=== PATIENT | male | born 1965 | race Caucasian/White ===

== ENCOUNTER 2024-01-03 10:46 | Day surgery (SDC) | payer OTHER ==
[2024-01-03 11:26] VITALS: BMI 20.8
[2024-01-03 11:43] LABS: HEMATOCRIT 37.9 % (35.4-49); HEMOGLOBIN 12.8 GM/dL (11.7-16.9); MCH 30.9 pg (25.7-33.7); MCHC 33.7 g/dl (32.0-35.9); MEAN CELL VOLUME 91.6 fl (80-96); MEAN PLT VOLUME 8.1 fl (7.5-11.1); PLATELET COUNT 286 10^3/uL (134-434); RBC 4.14 M/mm3 (4.00-5.60); RDW 13.8 % (11.9-15.9); WHITE BLOOD COUNT 9.6 K/mm3 (4.0-10.0)
[2024-01-03 13:20] LABS: HEMOGLOBIN 12.6 GM/dL (11.7-16.9); MCH 30.9 pg (25.7-33.7); MCHC 33.3 g/dl (32.0-35.9); MEAN CELL VOLUME 92.9 fl (80-96); PLATELET COUNT 291 10^3/uL (134-434); RBC 4.09 M/mm3 (4.00-5.60); RDW 13.7 % (11.9-15.9); WHITE BLOOD COUNT 9.5 K/mm3 (4.0-10.0)
[2024-01-03 13:28] LABS: INR 1.01 (0.83-1.09); PROTHROMBIN TIME (PATIENT) 11.6 SEC (9.7-13.0)
[2024-01-03 13:30] LABS: ACTIVATED PTT 23.8 SECONDS (25.2-36.5)
[2024-01-03 13:40] LABS: POTASSIUM 4.4 mmol/L (3.5-5.1)
[2024-01-03 13:45] LABS: BLOOD UREA NITROGEN 38.2 mg/dL (7-18); CALCIUM 9.1 mg/dL (8.5-10.1)
[2024-01-03 13:49] LABS: CREATININE 1.1 mg/dL (0.55-1.3)
[2024-01-03] MEDS ORDERED: ELECTROLYTE-148 SOLN 1,000 ML IV SCH (14:15)
[2024-01-03] MEDS ORDERED: oxyCODONE HCL 5 MG TABLET PO PRN (14:32)
[2024-01-03] MEDS ORDERED: ONDANSETRON 4 MG/2 ML VIAL IVPUSH PRN (14:32)
[2024-01-03] MEDS ORDERED: DEXAMETHASONE SOD PHOSPHATE 4 MG/1 ML VIAL ONE (14:34)
[2024-01-03] MEDS ORDERED: ONDANSETRON 4 MG/2 ML VIAL ONE (14:34)
[2024-01-03] MEDS ORDERED: LIDOCAINE HCL/PF 2% SDV 5ML VIAL ONE (14:34)
[2024-01-03] MEDS ORDERED: PROPOFOL 40 ML ONE (14:35)
[2024-01-03] MEDS ORDERED: MIDAZOLAM HCL 2 MG/2 ML SINGLE DOSE VIAL ONE (14:35)
[2024-01-03] MEDS ORDERED: LACTATED RINGERS SOLUTION 1,000 ML IV SCH (14:45)
[2024-01-03] MEDS: ceFAZolin SODIUM 1 GM VIAL IVPB ONE (14:49)
[2024-01-03] MEDS ORDERED: FUROSEMIDE 40 MG/4 ML INJECTABLE VIAL ONE (15:13)
[2024-01-03 17:21] VITALS: RESP 18
[2024-01-03 18:46] VITALS: BP 131/69; PULSE 89; TEMP 98.9
== END 2024-01-03 19:15 | disposition home or self-care (01) ==
LOC: JASU-SURG 10:46
PROVIDERS: ATTEND Urology
PROC: 0VB07ZZ Excision of Prostate, Via Natural or Artificial Opening (ICD-10-PCS; principal; 2024-01-03 14:30)
DX: N40.1 Benign prostatic hyperplasia with lower urinary tract symptoms (principal); R33.9 Retention of urine, unspecified
CPT/HCPCS: 36415; 80048; 85027; 85610; 85730; 88305-TC; 88342-TC; 94760

== ENCOUNTER 2024-01-05 18:03 | Inpatient (IN) | payer OTHER ==
[2024-01-05 18:21] VITALS: BMI 20.8
[2024-01-05 19:03] LABS: VENOUS BASE EXCESS 0.4 mmol/L (-2-2); VENOUS O2 SATURATION 74.2 % (70-80); VENOUS PCO2 35.9 mmHg (38-52); VENOUS PH 7.445 (7.310-7.410)
[2024-01-05 19:04] LABS: HEMATOCRIT 35.8 % (35.4-49); MCH 30.6 pg (25.7-33.7); MCHC 33.5 g/dl (32.0-35.9); MEAN CELL VOLUME 91.5 fl (80-96); MEAN PLT VOLUME 7.7 fl (7.5-11.1); PLATELET COUNT 293 10^3/uL (134-434); RBC 3.91 M/mm3 (4.00-5.60); RDW 14.2 % (11.9-15.9); WHITE BLOOD COUNT 14.3 K/mm3 (4.0-10.0)
[2024-01-05 19:15] LABS: INR 1.15 (0.83-1.09); PROTHROMBIN TIME (PATIENT) 12.9 SEC (9.7-13.0)
[2024-01-05 19:18] LABS: ACTIVATED PTT 24.3 SECONDS (25.2-36.5)
[2024-01-05 19:23] LABS: POTASSIUM 3.9 mmol/L (3.5-5.1)
[2024-01-05 19:25] LABS: CALCIUM 8.2 mg/dL (8.5-10.1)
[2024-01-05 19:26] LABS: ALBUMIN 2.6 g/dl (3.4-5.0); BLOOD UREA NITROGEN 26.3 mg/dL (7-18)
[2024-01-05 19:29] LABS: CREATININE 1.6 mg/dL (0.55-1.3)
[2024-01-05] MEDS ORDERED: ACETAMINOPHEN INJECTION 100 ML ONE (19:29)
[2024-01-05 19:30] LABS: BILIRUBIN,TOTAL 0.5 mg/dL (0.2-1)
[2024-01-05 19:31] LABS: TOT PROT 7.1 g/dl (6.4-8.2)
[2024-01-05 19:35] LABS: LACTIC ACID 2.5 mmol/L (0.4-2.0)
[2024-01-05] MEDS: ACETAMINOPHEN 1000 MG/100 ML BAG IVPB ONE (19:37)
[2024-01-05] MEDS: SODIUM CHLORIDE 0.9% 1000 ML INFUS.BAG IV STA (19:38)
[2024-01-05] MEDS ORDERED: PIPERACILLIN/TAZOB 4.5 GM 4.5 GM/100 ML BAG IVPB ONE (19:43)
[2024-01-05] MEDS ORDERED: DEXTROSE 5%-WATER 100 ML IVPB ONE (19:45)
[2024-01-05] MEDS: PIPERACILLIN/TAZOBACTAM 4.5 GM VIAL IVPB ONE (19:57)
[2024-01-05 20:23] LABS: EPI CELLS 3 /uL (0-25.1); HYALINE CASTS 3 /uL (0-3.1); PH,URINE 5.5 (5.0-8.0); URINE APPEARANCE CLOUDY; URINE BACTERIA 1253 /uL (0-1359); URINE BILIRUBIN NEGATIVE (NEGATIVE); URINE COLOR RED; URINE GLUCOSE (UA) NEGATIVE (NEGATIVE); URINE KETONE NEGATIVE (NEGATIVE); URINE LEUK ESTERASE 2+ (NEGATIVE); URINE NITRITE NEGATIVE (NEGATIVE); URINE PROTEIN 3+ (NEGATIVE); URINE RBC 11946 /uL (0-23.9); URINE UROBILINOGEN 0.2 mg/dL (0.2-1.0); URINE WBC 384 /uL (0-25.8)
[2024-01-05] MEDS: LACTATED RINGERS SOLUTION 1,000 ML/1,000 ML INFUS.BAG IV SCH (23:58)
[2024-01-06] MEDS ORDERED: ACETAMINOPHEN INJECTION 100 ML ONE (01:19)
[2024-01-06] MEDS: ACETAMINOPHEN 1000 MG/100 ML BAG IVPB PRN (01:24)
[2024-01-06] MEDS ORDERED: PIPERACILLIN/TAZOB 3.375 GM 3.375 GM/50 ML BAG IVPB ONE ×3 (01:35→10:32)
[2024-01-06] MEDS: PIPERACILLIN/TAZOB 3.375 GM 3.375 GM in DEXTROSE 5%-WATER - 50 ML IVPB SCH (02:08)
[2024-01-06] MEDS ORDERED: KETOROLAC TROMETHAMINE 15 MG/ML VIAL ONE (06:43)
[2024-01-06] MEDS: KETOROLAC TROMETHAMINE 15 MG/ML VIAL IVPUSH ONE ×2 (06:53→11:58)
[2024-01-06 07:43] LABS: HEMATOCRIT 35.4 % (35.4-49); HEMOGLOBIN 11.5 GM/dL (11.7-16.9); MCH 30.7 pg (25.7-33.7); MCHC 32.4 g/dl (32.0-35.9); MEAN CELL VOLUME 94.5 fl (80-96); MEAN PLT VOLUME 8.2 fl (7.5-11.1); PLATELET COUNT 252 10^3/uL (134-434); RBC 3.75 M/mm3 (4.00-5.60); RDW 14.2 % (11.9-15.9); WHITE BLOOD COUNT 15.4 K/mm3 (4.0-10.0)
[2024-01-06] MEDS ORDERED: PANTOPRAZOLE 40 MG TABLET PO ONE (07:54)
[2024-01-06] MEDS: PANTOPRAZOLE 40 MG TABLET PO SCH (07:58)
[2024-01-06 08:07] LABS: POTASSIUM 4.4 mmol/L (3.5-5.1)
[2024-01-06 08:16] LABS: ALBUMIN 2.5 g/dl (3.4-5.0); BLOOD UREA NITROGEN 23.9 mg/dL (7-18)
[2024-01-06 08:18] LABS: BILIRUBIN,TOTAL 0.6 mg/dL (0.2-1); TOT PROT 6.8 g/dl (6.4-8.2)
[2024-01-06 08:19] LABS: CALCIUM 8.3 mg/dL (8.5-10.1); CREATININE 1.4 mg/dL (0.55-1.3); MAGNESIUM 1.9 mg/dL (1.8-2.4)
[2024-01-06 08:20] LABS: PHOSPHOROUS 4.4 mg/dL (2.5-4.9)
[2024-01-06] MEDS ORDERED: TAMSULOSIN HCL 0.4 MG CAP ONE (09:36)
[2024-01-06] MEDS: TAMSULOSIN HCL 0.4 MG CAP PO SCH (09:41)
[2024-01-06] MEDS ORDERED: TAMSULOSIN HCL 0.4 MG CAP PO SCH (10:00)
[2024-01-06] MEDS ORDERED: ACETAMINOPHEN 325 MG TABLET (FP) ONE ×2 (11:20→18:29)
[2024-01-06] MEDS: ACETAMINOPHEN 325 MG TABLET (FP) PO PRN ×2 (11:25→19:14)
[2024-01-06] MEDS: FAMOTIDINE 20 MG TABLET PO SCH (11:59)
[2024-01-06] MEDS: BACLOFEN 10 MG TABLET (FP) PO ONE (11:59)
[2024-01-06] MEDS ORDERED: PIPERACILLIN/TAZOB 4.5 GM 4.5 GM/100 ML BAG IVPB ONE (18:29)
[2024-01-06] MEDS ORDERED: BACLOFEN 10 MG TABLET (FP) ONE (18:29)
[2024-01-06] MEDS: PIPERACILLIN/TAZOB 4.5 GM 4.5 GM/100 ML BAG IVPB SCH (18:57)
[2024-01-06] MEDS: BACLOFEN 10 MG TABLET (FP) PO SCH (18:57)
[2024-01-06] MEDS: LACTATED RINGERS SOLUTION 1,000 ML/1,000 ML INFUS.BAG IV STA (22:34)
[2024-01-07] MEDS: PIPERACILLIN/TAZOB 3.375 GM 3.375 GM in DEXTROSE 5%-WATER - 50 ML IVPB SCH (08:37)
[2024-01-07 11:57] LABS: BASO % 0.2 % (0-2.0); HEMATOCRIT 27.6 % (35.4-49); HEMOGLOBIN 9.4 GM/dL (11.7-16.9); LYMPH % 7.9 % (8-40); MCH 31.5 pg (25.7-33.7); MCHC 34.2 g/dl (32.0-35.9); MEAN CELL VOLUME 92.1 fl (80-96); MEAN PLT VOLUME 8.1 fl (7.5-11.1); NEUT % 86.9 % (42.8-82.8); PLATELET COUNT 129 10^3/uL (134-434); RDW 14.3 % (11.9-15.9); WHITE BLOOD COUNT 8.2 K/mm3 (4.0-10.0)
[2024-01-07 12:18] LABS: POTASSIUM 3.7 mmol/L (3.5-5.1)
[2024-01-07 12:20] LABS: CALCIUM 7.7 mg/dL (8.5-10.1)
[2024-01-07 12:21] LABS: BLOOD UREA NITROGEN 23.7 mg/dL (7-18)
[2024-01-07 12:24] LABS: CREATININE 1.4 mg/dL (0.55-1.3)
[2024-01-07 12:25] LABS: BILIRUBIN,TOTAL 0.4 mg/dL (0.2-1); TOT PROT 5.1 g/dl (6.4-8.2)
[2024-01-07 12:27] LABS: ALBUMIN 1.7 g/dl (3.4-5.0)
[2024-01-07] MEDS: DOCUSATE SODIUM 100 MG CAPSULE (FP) PO SCH (13:56)
[2024-01-07] MEDS: IBUPROFEN 400 MG TABLET (FP) PO PRN (15:47)
[2024-01-07] MEDS: OXYBUTYNIN CHLORIDE 5 MG TABLET PO SCH (22:12)
[2024-01-08 10:47] LABS: POTASSIUM 3.6 mmol/L (3.5-5.1)
[2024-01-08 10:55] LABS: CALCIUM 8.1 mg/dL (8.5-10.1)
[2024-01-08 10:56] LABS: BLOOD UREA NITROGEN 20.9 mg/dL (7-18)
[2024-01-08 10:59] LABS: CREATININE 1.4 mg/dL (0.55-1.3)
[2024-01-08] MEDS: POLYETHYLENE GLYCOL (HEALTHYLAX) 3350 17 GM PACKET PO SCH (12:48)
[2024-01-08 14:27] VITALS: RESP 18
[2024-01-08] MEDS: AMPICILLIN - 1 GM in SODIUM CHLORIDE 100 ML IVPB SCH (22:40)
[2024-01-09 09:55] LABS: BASO % 0.2 % (0-2.0); EOS % 0.3 % (0-4.5); HEMOGLOBIN 10.2 GM/dL (11.7-16.9); LYMPH % 11.4 % (8-40); MCH 31.1 pg (25.7-33.7); MEAN CELL VOLUME 91.5 fl (80-96); MEAN PLT VOLUME 8.1 fl (7.5-11.1); MONO % 6.2 % (3.8-10.2); NEUT % 81.9 % (42.8-82.8); PLATELET COUNT 161 10^3/uL (134-434); RBC 3.28 M/mm3 (4.00-5.60); RDW 14.3 % (11.9-15.9); WHITE BLOOD COUNT 6.9 K/mm3 (4.0-10.0)
[2024-01-09 10:16] LABS: CALCIUM 8.6 mg/dL (8.5-10.1)
[2024-01-09 10:17] LABS: BLOOD UREA NITROGEN 18.2 mg/dL (7-18)
[2024-01-09 10:20] LABS: CREATININE 1.5 mg/dL (0.55-1.3)
[2024-01-10 08:51] LABS: BASO % 0.3 % (0-2.0); EOS % 0.6 % (0-4.5); HEMATOCRIT 31.9 % (35.4-49); HEMOGLOBIN 10.6 GM/dL (11.7-16.9); LYMPH % 13.1 % (8-40); MCH 30.6 pg (25.7-33.7); MCHC 33.4 g/dl (32.0-35.9); MEAN CELL VOLUME 91.7 fl (80-96); MONO % 6.5 % (3.8-10.2); NEUT % 79.5 % (42.8-82.8); PLATELET COUNT 234 10^3/uL (134-434); RBC 3.48 M/mm3 (4.00-5.60); RDW 14.7 % (11.9-15.9); WHITE BLOOD COUNT 7.4 K/mm3 (4.0-10.0)
[2024-01-10 09:14] LABS: POTASSIUM 4.1 mmol/L (3.5-5.1)
[2024-01-10 09:15] LABS: CALCIUM 8.8 mg/dL (8.5-10.1)
[2024-01-10 09:16] LABS: BLOOD UREA NITROGEN 17.8 mg/dL (7-18)
[2024-01-10 09:19] LABS: CREATININE 1.3 mg/dL (0.55-1.3)
[2024-01-10] MEDS: SIMETHICONE 80 MG TAB.CHEW (FP) PO ONE (16:32)
[2024-01-11 06:31] VITALS: TEMP 98.2
[2024-01-11 10:17] LABS: BASO % 0.3 % (0-2.0); EOS % 0.8 % (0-4.5); HEMATOCRIT 30.4 % (35.4-49); LYMPH % 11.4 % (8-40); MCH 30.4 pg (25.7-33.7); MEAN CELL VOLUME 92.2 fl (80-96); MEAN PLT VOLUME 7.9 fl (7.5-11.1); MONO % 4.2 % (3.8-10.2); NEUT % 83.3 % (42.8-82.8); PLATELET COUNT 246 10^3/uL (134-434); RDW 14.5 % (11.9-15.9); WHITE BLOOD COUNT 7.1 K/mm3 (4.0-10.0)
[2024-01-11 16:37] VITALS: BP 128/79; PULSE 79
== END 2024-01-11 17:01 | disposition home or self-care (01) | DRG 872 ==
LOC: JER 18:03 → JERBED 20:09 → J5S 01-06 20:32
PROVIDERS: ADMIT Internal Medicine
DX: A41.89 Other specified sepsis (principal); E87.1 Hypo-osmolality and hyponatremia; N17.9 Acute kidney failure, unspecified; E87.20 Acidosis, unspecified; N39.0 Urinary tract infection, site not specified; K21.9 Gastro-esophageal reflux disease without esophagitis; N40.1 Benign prostatic hyperplasia with lower urinary tract symptoms; R33.8 Other retention of urine; R00.0 Tachycardia, unspecified; N41.8 Other inflammatory diseases of prostate; B95.2 Enterococcus as the cause of diseases classified elsewhere; K59.00 Constipation, unspecified; N32.89 Other specified disorders of bladder; D69.59 Other secondary thrombocytopenia; T36.8X5A Adverse effect of other systemic antibiotics, initial encounter; Y92.239 Unspecified place in hospital as the place of occurrence of the external cause
CPT/HCPCS: 0241U-QW; 36415; 71045-TC-FY; 74176-TC; 80048; 80053; 81003; 82803; 83605; 83735; 84100; 84484; 85025; 85027; 85610; 85730; 86850; 86900; 86901; 87040; 87086; 87186; 93005; 93010; 99285-25; J0131; J0475

== ENCOUNTER 2024-01-12 05:03 | Inpatient (IN) | payer OTHER ==
[2024-01-12] MEDS: LIDOCAINE HCL 2% JELLY 10 ML CARTRIDGE UR ONE (05:30)
[2024-01-12] MEDS ORDERED: LIDOCAINE HCL 2% JELLY 6 ML TP ONE ×2 (05:36→06:54)
[2024-01-12] MEDS ORDERED: morphine SULFATE 4 MG/ML VIAL ONE ×3 (06:13→08:42)
[2024-01-12] MEDS: morphine CARPU-JECT 4 MG/1 ML DISP.SYRIN IVPUSH ONE ×3 (06:23→08:56)
[2024-01-12 08:22] LABS: BASO % 0.8 % (0-2.0); EOS % 0.9 % (0-4.5); HEMATOCRIT 29.3 % (35.4-49); HEMOGLOBIN 9.8 GM/dL (11.7-16.9); LYMPH % 15.3 % (8-40); MCH 30.9 pg (25.7-33.7); MCHC 33.3 g/dl (32.0-35.9); MEAN CELL VOLUME 92.7 fl (80-96); MEAN PLT VOLUME 7.4 fl (7.5-11.1); MONO % 4.7 % (3.8-10.2); NEUT % 78.3 % (42.8-82.8); PLATELET COUNT 302 10^3/uL (134-434); RBC 3.16 M/mm3 (4.00-5.60); RDW 14.8 % (11.9-15.9); WHITE BLOOD COUNT 8.7 K/mm3 (4.0-10.0)
[2024-01-12] MEDS ORDERED: CEFTRIAXONE 1 GM/50 ML BAG ONE (08:42)
[2024-01-12 08:51] LABS: POTASSIUM 4.2 mmol/L (3.5-5.1)
[2024-01-12 08:53] LABS: BLOOD UREA NITROGEN 21.5 mg/dL (7-18); CALCIUM 8.5 mg/dL (8.5-10.1)
[2024-01-12 08:57] LABS: CREATININE 1.4 mg/dL (0.55-1.3)
[2024-01-12] MEDS: SODIUM CHLORIDE 1,000 ML IV SCH (08:57)
[2024-01-12 08:58] LABS: BILIRUBIN,TOTAL 0.3 mg/dL (0.2-1); TOT PROT 6.1 g/dl (6.4-8.2)
[2024-01-12 09:03] LABS: ALBUMIN 2.2 g/dl (3.4-5.0)
[2024-01-12 11:44] LABS: EPI CELLS 2 /uL (0-25.1); HYALINE CASTS 0 /uL (0-3.1); URINE APPEARANCE CLEAR; URINE BACTERIA 8 /uL (0-1359); URINE BILIRUBIN NEGATIVE (NEGATIVE); URINE COLOR YELLOW; URINE GLUCOSE (UA) NEGATIVE (NEGATIVE); URINE KETONE NEGATIVE (NEGATIVE); URINE LEUK ESTERASE TRACE (NEGATIVE); URINE NITRITE NEGATIVE (NEGATIVE); URINE PROTEIN TRACE (NEGATIVE); URINE RBC 1201 /uL (0-23.9); URINE UROBILINOGEN 0.2 mg/dL (0.2-1.0); URINE WBC 26 /uL (0-25.8)
[2024-01-12] MEDS: AMOX TR/POT CLAV 875MG/125MG TABLETS (FP) PO SCH (17:04)
[2024-01-13] MEDS: TAMSULOSIN HCL 0.4 MG CAP PO SCH (08:45)
[2024-01-13] MEDS: PANTOPRAZOLE 40 MG TABLET PO SCH (10:10)
[2024-01-13] MEDS: POLYETHYLENE GLYCOL (HEALTHYLAX) 3350 17 GM PACKET PO SCH ×2 (10:10→21:49)
[2024-01-13 11:26] VITALS: BMI 20.9
[2024-01-13] MEDS: ACETAMINOPHEN 325 MG TABLET (FP) PO PRN (12:49)
[2024-01-13] MEDS: MAG HYDROX/ALH/SMC/DPHA/LIDO 240 ML MOUTHWASH MM SCH (14:43)
[2024-01-13] MEDS: DOCUSATE SODIUM 100 MG CAPSULE (FP) PO SCH (17:40)
[2024-01-13] MEDS: PHENYLEPHRINE HCL/COCOA BUTTER 1 EACH SUPP.RECT RC SCH (21:49)
[2024-01-14 09:22] LABS: BASO % 0.5 % (0-2.0); EOS % 1.2 % (0-4.5); HEMATOCRIT 32.3 % (35.4-49); HEMOGLOBIN 10.8 GM/dL (11.7-16.9); LYMPH % 13.9 % (8-40); MCHC 33.5 g/dl (32.0-35.9); MEAN CELL VOLUME 92.4 fl (80-96); MEAN PLT VOLUME 7.5 fl (7.5-11.1); MONO % 5.8 % (3.8-10.2); NEUT % 78.6 % (42.8-82.8); PLATELET COUNT 372 10^3/uL (134-434); RBC 3.49 M/mm3 (4.00-5.60); RDW 14.6 % (11.9-15.9); WHITE BLOOD COUNT 6.8 K/mm3 (4.0-10.0)
[2024-01-14 09:46] LABS: POTASSIUM 4.2 mmol/L (3.5-5.1)
[2024-01-14 10:05] LABS: CALCIUM 8.8 mg/dL (8.5-10.1)
[2024-01-14 10:06] LABS: BLOOD UREA NITROGEN 19.6 mg/dL (7-18)
[2024-01-14 10:08] LABS: CREATININE 1.2 mg/dL (0.55-1.3)
[2024-01-15] MEDS: PANTOPRAZOLE 40 MG TABLET PO SCH (06:04)
[2024-01-15 07:29] LABS: HEMATOCRIT 32.5 % (35.4-49); HEMOGLOBIN 10.6 GM/dL (11.7-16.9); MCH 30.2 pg (25.7-33.7); MCHC 32.5 g/dl (32.0-35.9); MEAN CELL VOLUME 92.9 fl (80-96); MEAN PLT VOLUME 7.1 fl (7.5-11.1); PLATELET COUNT 417 10^3/uL (134-434); RDW 14.6 % (11.9-15.9)
[2024-01-15 07:48] LABS: POTASSIUM 4.6 mmol/L (3.5-5.1)
[2024-01-15 07:50] LABS: BLOOD UREA NITROGEN 15.9 mg/dL (7-18); MAGNESIUM 2.3 mg/dL (1.8-2.4)
[2024-01-15 07:52] LABS: CREATININE 1.2 mg/dL (0.55-1.3)
[2024-01-15 07:54] LABS: PHOSPHOROUS 3.6 mg/dL (2.5-4.9)
[2024-01-15 12:36] LABS: BASO % 0.6 % (0-2.0); EOS % 0.8 % (0-4.5); HEMATOCRIT 33.8 % (35.4-49); HEMOGLOBIN 11.1 GM/dL (11.7-16.9); LYMPH % 16.2 % (8-40); MCH 30.7 pg (25.7-33.7); MCHC 32.7 g/dl (32.0-35.9); MEAN CELL VOLUME 93.7 fl (80-96); MEAN PLT VOLUME 6.8 fl (7.5-11.1); MONO % 5.9 % (3.8-10.2); NEUT % 76.5 % (42.8-82.8); PLATELET COUNT 464 10^3/uL (134-434); RDW 14.8 % (11.9-15.9); WHITE BLOOD COUNT 6.4 K/mm3 (4.0-10.0)
[2024-01-15] MEDS: SODIUM CHLORIDE 1,000 ML IV SCH (15:28)
[2024-01-16 09:04] LABS: BASO % 0.6 % (0-2.0); HEMATOCRIT 31.8 % (35.4-49); HEMOGLOBIN 10.5 GM/dL (11.7-16.9); LYMPH % 17.2 % (8-40); MCH 30.7 pg (25.7-33.7); MCHC 32.9 g/dl (32.0-35.9); MEAN CELL VOLUME 93.3 fl (80-96); MEAN PLT VOLUME 7.2 fl (7.5-11.1); MONO % 7.2 % (3.8-10.2); PLATELET COUNT 447 10^3/uL (134-434); RBC 3.41 M/mm3 (4.00-5.60); RDW 14.5 % (11.9-15.9); WHITE BLOOD COUNT 6.8 K/mm3 (4.0-10.0)
[2024-01-16 09:15] LABS: POTASSIUM 4.6 mmol/L (3.5-5.1)
[2024-01-16 09:20] LABS: ALBUMIN 2.4 g/dl (3.4-5.0); BLOOD UREA NITROGEN 15.4 mg/dL (7-18); CALCIUM 8.5 mg/dL (8.5-10.1); MAGNESIUM 2.3 mg/dL (1.8-2.4)
[2024-01-16 09:23] LABS: CREATININE 1.2 mg/dL (0.55-1.3)
[2024-01-16 09:25] LABS: BILIRUBIN,TOTAL 0.3 mg/dL (0.2-1); TOT PROT 6.3 g/dl (6.4-8.2)
[2024-01-17 10:00] LABS: BASO % 0.5 % (0-2.0); EOS % 0.8 % (0-4.5); HEMATOCRIT 32.1 % (35.4-49); HEMOGLOBIN 10.9 GM/dL (11.7-16.9); LYMPH % 13.5 % (8-40); MCH 31.2 pg (25.7-33.7); MEAN CELL VOLUME 91.5 fl (80-96); MEAN PLT VOLUME 7.2 fl (7.5-11.1); MONO % 4.3 % (3.8-10.2); NEUT % 80.9 % (42.8-82.8); PLATELET COUNT 439 10^3/uL (134-434); RBC 3.51 M/mm3 (4.00-5.60); RDW 14.5 % (11.9-15.9)
[2024-01-17 10:12] LABS: POTASSIUM 4.4 mmol/L (3.5-5.1)
[2024-01-17 10:15] LABS: BLOOD UREA NITROGEN 18.8 mg/dL (7-18); CALCIUM 8.7 mg/dL (8.5-10.1)
[2024-01-17 10:19] LABS: CREATININE 1.2 mg/dL (0.55-1.3)
[2024-01-19 03:01] VITALS: RESP 18
[2024-01-19 14:22] VITALS: BP 111/73; PULSE 87; TEMP 98.4
== END 2024-01-19 15:01 | disposition home or self-care (01) | DRG 696 ==
LOC: JER 05:03 → JERBED 12:26 → J7W 15:11 → OBSVTOIN 01-15 12:26
PROVIDERS: ADMIT Internal Medicine
PROC: 0T9B70Z Drainage of Bladder with Drainage Device, Via Natural or Artificial Opening (ICD-10-PCS; principal; 2024-01-12)
DX: R33.8 Other retention of urine (principal); N40.1 Benign prostatic hyperplasia with lower urinary tract symptoms; N32.89 Other specified disorders of bladder; R31.9 Hematuria, unspecified; K59.00 Constipation, unspecified; Z98.890 Other specified postprocedural states
CPT/HCPCS: 36415; 80048; 80053; 81003; 83735; 84100; 85025; 85027; 87086; 99285-25; G0378